=== PATIENT | male | born 1985 | race Hispanic/Latino ===

== ENCOUNTER 2023-11-30 20:24 | Inpatient (IN) | payer BC, OTHER ==
[2023-11-30] MEDS ORDERED: ONDANSETRON 4 MG/2 ML VIAL ONE (21:07)
[2023-11-30] MEDS ORDERED: NA CHLORIDE 0.9% 1,000 ML ONE (21:07)
[2023-11-30 21:13] LABS: Absolute Lymphocytes (CBC) 1.3 K/uL (0.7-4.9); Absolute Monocytes 1.6 K/uL (0.1-1.3); Basophils % 0.2 % (0-1.3); Eosinophils % 0.3 % (0-4.4); Hematocrit 53.5 % (39.6-49.0); Hemoglobin 17.8 g/dL (13.6-17.9); Lymphocytes % 8.4 % (15.3-44.8); MCH 27.7 pg (27.0-35.0); MCHC 33.2 g/dL (32.0-36.0); MCV 83.5 fL (80-100); MPV 9.6 fL (7.6-11.3); Monocytes % 10.6 % (3.3-12.3); Neutrophils % 80.5 % (41.7-73.7); Nucleated Red Blood Cells % 0.3 % (0-0); Platelets 279 thou/uL (152-406); RBC Red Blood Cell Count 6.41 M/uL (4.33-5.43); Red Cell Distribution Width 15.5 % (12.1-15.2)
[2023-11-30 21:24] LABS: ALT/SGPT 20 U/L (16-61); Albumin 3.2 g/dL (3.4-5.0); Albumin/Globulin Ratio 0.9 (1.1-1.8); Alkaline Phosphatase 29 U/L (45-117); Anion Gap 13.7 mEq/L (5.0-15.0); BUN Blood Urea Nitrogen 60 mg/dL (7-18); Bicarbonate 23 mEq/L (21-32); Bilirubin Total 1.1 mg/dL (0.2-1.0); Globulin 3.5 g/dL (2.3-3.5); Glomerular Filtration Rate 30 ml/min (=/>90); Glucose Level 198 mg/dL (74-106); Potassium 3.7 mEq/L (3.5-5.1); Protein, Total 6.7 g/dL (6.4-8.2); Sodium Level 131 mEq/L (136-145)
[2023-11-30 21:27] LABS: AST/SGOT < 10 U/L (15-37)
[2023-11-30 21:39] LABS: Band Neutrophils 26 % (0-1); Differential Total Cells Count 100; Lymphocytes 3 % (15-42); Monocytes 11 % (0-10); Reactive Lymphocytes 7 %; Segmented Neutrophils 53 % (40-80)
[2023-11-30 21:40] LABS: Blood Morphology Comment NOT SEEN (NOT SEEN); Platelet Estimate ADEQ
[2023-11-30 21:44] LABS: PT Prothrombin Time 11.7 SECONDS (9.4-12.5); PTT, Activated Partial Thromb 31.8 SECONDS (24.3-36.9); Protime INR 1.05
[2023-11-30] MEDS ORDERED: CEFTRIAXONE 1000 MG/VIAL ONE (22:00)
[2023-11-30 22:06] LABS: SARS-CoV-2 Antigen CONTROL BLUE LINE VIS/BG OK; SARS-CoV-2 Antigen Rapid Res Negative (Negative)
[2023-11-30 22:08] LABS: Specific Gravity 1.016 (1.005-1.030); Sqamous Epithelial <5 /HPF (None Seen); Urine Bacteria 20-50 /HPF (<20); Urine Bilirubin NEGATIVE (Negative); Urine Blood 3+ (OVER) (Negative); Urine Clarity Extremely Turbid (Clear); Urine Color Light-Orange (Yellow); Urine Culture Reflex Order REFLEXED; Urine Glucose 4+ (Over) (Negative); Urine Ketones NEGATIVE (Negative); Urine Microscopic Reflex YN ORDER UMIC; Urine Mucus Slight /HPF (None Seen); Urine Nitrite NEGATIVE (Negative); Urine Protein 2+ (Negative); Urine RBC >50 /HPF (None Seen); Urine Urobilinogen Normal (Normal); Urine WBC >50 /HPF (<5); Urine pH 5.5 (5.0-7.0)
--- NOTE | 2023-11-30 22:47 | EDPHYS ---
Physician Documentation [facility] Name: Vinicio Lowe Age: 38 yrs Sex: Male : 1985 Arrival Date: 11/30/2023 Time: 20:24 Bed 20 Private MD: ED Physician Deo You HPI: 11/29 22:47 This 38 yrs old Male presents to ER via Ambulatory with complaints of ms3 Vomiting/Diarrhea, Abdominal Pain. 22:47 38-year-old male with past medical history of chronic kidney disease, liver transplant ms3 ago in [place] presents to the emergency department for nausea, vomiting, diarrhea that began on Friday. Patient had 1 episode of vomiting on Friday. Patient has had persistent diarrhea since Friday. He states his discomfort is an 8/10 describes the discomfort as generalized body aches. He denies any alleviating or inciting factors.. Historical: - Allergies: 20:55 No Known Allergies; tm6 - PMHx: 20:55 chronic kidney disease; tm6 - PSHx: 20:55 liver transplant; tm6 - Immunization history:: Client reports receiving the 2nd dose of the Covid vaccine. - Infectious Disease History:: Denies. - Social history:: Smoking status: Reported history of juuling and/or vaping. Patient/guardian denies using alcohol. ROS: 22:47 Constitutional: Negative for fever, and chills. Cardiovascular: Negative for chest ms3 pain, and palpitations. Respiratory: Negative for shortness of breath, cough, wheezing, and pleuritic chest pain, 22:47 MS/Extremity: Negative for injury and deformity, Skin: Negative for injury, rash, and discoloration, 22:47 Abdomen/GI: Positive for nausea, vomiting, and diarrhea, Exam: 22:47 Constitutional: This is a well developed, well nourished patient who is awake, alert, ms3 and in no acute distress. Neck: Trachea midline, no cervical lymphadenopathy. Supple, full range of motion without nuchal rigidity, or vertebral point tenderness. No Meningismus. Chest/axilla: Normal chest wall appearance and motion. Nontender with no deformity. Respiratory: Lungs have equal breath sounds bilaterally, clear to auscultation and percussion. No rales, rhonchi or wheezes noted. No increased work of breathing, no retractions or nasal flaring. Abdomen/GI: Soft, non-tender, with normal bowel sounds. No distension or tympany. No guarding or rebound. No evidence of tenderness throughout. Skin: Warm, dry with normal turgor. Normal color with no rashes, no lesions, and no evidence of cellulitis. 22:47 Cardiovascular: Rate: tachycardic, Rhythm: regular, Pulses: no pulse deficits are appreciated, Heart sounds: normal, normal S1and S2, 23:24 ECG was reviewed by the Attending Physician. ms3 Vital Signs: 20:42 BP 114 / 81; Pulse 123; Resp 19; Temp 98.8(O); Pulse Ox 95% on R/A; MAP 87 mmHg; Weight tm6 97.52 kg; Height 5 ft. 9 in. ; Pain 4/10; 21:30 BP 124 / 85; Pulse 97; Resp 18 S; Pulse Ox 93% on R/A; br2 22:30 BP 122 / 68; Pulse 94; Resp 18 S; Pulse Ox 92% on R/A; br2 23:34 BP 120 / 70; Pulse 98; Resp 18 S; Temp 97.2; Pulse Ox 95% on R/A; br2 20:42 Body Mass Index 31.75 (97.52 kg, 175.26 cm) tm6 20:42 Pain Scale: Adult tm6 MDM: 20:52 Medical Screening Exam initiated ms3 22:47 Differential diagnosis: viral gastroenteritis, Rhabdo vs Acute Kidney Injury. Data ms3 reviewed: vital signs, nurses notes, and as a result, I will admit patient. Consideration of Admission/Observation Patient was admitted/placed on observation. Management of patient was discussed with the following: Hospitalist: Dr Francis. I considered the following discharge prescriptions or medication management in the emergency department Medications were administered in the Emergency Department. See MAR. Counseling: I had a detailed discussion with the patient and/or guardian regarding the historical points, exam findings, and any diagnostic results supporting the discharge/admit diagnosis, lab results, the need for further work-up and treatment in the hospital. ED course: Patient meets severe sepsis criteria at this time. A. UTI B. HR>90, WBC >12k. C. Cr >2. Sepsis order set utilized. Blood cultures obtained. Rocephin given. No need for repeat LA as initial was <2.0. 10/20 20:53 Order name: CBC with Diff; Complete Time: 21:50 ms3 11/29 20:53 Order name: CMP; Complete Time: 21:34 ms3 11/29 21:18 Order name: Manual Differential; Complete Time: 21:50 EDMS 11/29 21:22 Order name: Urinalysis w/ reflexes; Complete Time: 22:31 ms3 11/29 21:23 Order name: Blood Culture Adult (2) ms3 11/29 21:23 Order name: Lactate w/ 2H reflex if indic.; Complete Time: 22:31 ms3 11/29 21:23 Order name: Protime (+inr); Complete Time: 21:50 ms3 11/29 21:23 Order name: Ptt, Activated; Complete Time: 21:50 ms3 11/29 21:23 Order name: Flu; Complete Time: 22:31 ms3 11/29 21:23 Order name: SARS RAPID; Complete Time: 22:31 ms3 11/29 22:12 Order name: Urine Culture EDMS 11/29 23:00 Order name: Lactate w/ 2H reflex if indic. EDMS 11/29 23:00 Order name: Urinalysis w/ reflexes EDMS 11/29 23:00 Order name: CBC with Automated Diff EDMS 11/29 23:00 Order name: CBC with Automated Diff EDMS 11/29 23:00 Order name: Comprehensive Metabolic Panel EDMS 11/29 23:00 Order name: Comprehensive Metabolic Panel EDMS 11/29 21:23 Order name: EKG; Complete Time: 21:23 ms3 11/29 21:23 Order name: Accucheck; Complete Time: 22:37 ms3 11/29 21:23 Order name: Cardiac monitoring; Complete Time: 22:37 ms3 11/29 21:23 Order name: EKG - Nurse/Tech; Complete Time: 23:15 ms3 11/29 21:23 Order name: IV Saline Lock - Large Bore; Complete Time: 22:37 ms3 11/29 21:23 Order name: Labs collected and sent; Complete Time: 22:37 ms3 11/29 21:23 Order name: O2 Per Protocol; Complete Time: 22:37 ms3 11/29 21:23 Order name: O2 Sat Monitoring; Complete Time: 22:37 ms3 11/29 21:23 Order name: Vital Signs; Complete Time: 22:37 ms3 EC:24 Rate is 96 beats/min. Rhythm is regular. QRS [place] is Normal. [place] interval is normal. QRS ms3 interval is normal. Clinical impression: Normal ECG. Interpreted by me. Reviewed by me. Administered Medications: 21:20 Drug: Ondansetron IVP 4 mg IVP once; over 2 minutes Route: IVP; Site: right antecubital;br2 22:00 Follow up: Response: No adverse reaction br2 21:21 Drug: NS 0.9% IV 1000 ml IV at 1000 ml once; to be given as a bolus over 60 minutes br2 Route: IV; Rate: 1000 ml; Site: right antecubital; 22:30 Follow up: Response: No adverse reaction; IV Status: Completed infusion; IV Intake: br2 1000ml 22:05 Drug: Rocephin IV 1 grams IV at calculated rate once; Given slow IV push per pharmacy br2 instructions Route: IV; Rate: calculated rate; Site: right antecubital; 22:50 Follow up: Response: No adverse reaction; IV Status: Completed infusion; IV Intake: 40ycin2 Disposition Summary: 11/30/23 22:46 Hospitalization Ordered Notes: Hospitalization Status: Inpatient Admission ms3 Provider: Heriberto Francis ms3 Location: Telemetry/[facility] (Inpatient) ms3 Condition: Stable ms3 Problem: new ms3 Symptoms: are unchanged ms3 Bed/Room Type: Standard ms3 Room Assignment: 231(11/30/23 23:09) Diagnosis - Severe sepsis without septic shock ms3 - Acute kindey injury ms3 Forms: - Medication Reconciliation Form ms3 - SBAR form ms3 - Leadership Thank You Letter ms3 Critical care time excluding procedures: 22:47 Critical care time: Bedside Care: 35 minutes, Consultation: 5 minutes, Family ms3 Intervention: 5 minutes. Total time: 45 minutes Signatures: Dispatcher [employer] Toshia White, RN RN Deo Odell DO DO ms3 Dhara Canchola RN RN tm6 Sharon Warren RN RN br2 Tegan Palomo RN ha1 Corrections: (The following items were deleted from the chart) 21:23 21:23 Influenza Screen (A \T\ B)+BA.LAB.BRZ ordered. EDMS EDMS 21:23 SARS-COV-2 Antigen Rapid+I.LAB.BRZ ordered. EDMS EDMS : 22:46 ms3 cg
--- NOTE | 2023-11-30 22:47 | ER ---
Nurse's Notes [facility] Name: Vinicio Lowe Age: 38 yrs Sex: Male : 1985 Arrival Date: 11/30/2023 Time: 20:24 Bed 20 Private MD: Diagnosis: Severe sepsis without septic shock;Acute kindey injury Presentation: 11/29 20:42 Chief complaint: Patient states: since Friday evening I have had n/v/d. My lower tm6 abdomen and esophagus hurt. Coronavirus screen: Vaccine status: Patient reports receiving the 2nd dose of the covid vaccine. Client denies travel out of the [place] in the last 14 days. Ebola Screen: Patient negative for fever greater than or equal to 101.5 degrees Fahrenheit, and additional compatible Ebola Virus Disease symptoms Patient denies exposure to infectious person. Patient denies travel to an Ebola-affected area in the 21 days before illness onset. No symptoms or risks identified at this time. Initial Sepsis Screen: Does the patient meet any 2 criteria? HR > 90 bpm. Does the patient have a suspected source of infection? No. Patient's initial sepsis screen is negative. Risk Assessment: Do you want to hurt yourself or someone else? Patient reports no desire to harm self or others. Onset of symptoms was November 28, 2023. 20:42 Method Of Arrival: Ambulatory tm6 20:42 Acuity: TERRY 3 tm6 Triage Assessment: 20:42 General: Appears in no apparent distress. uncomfortable, Behavior is calm, cooperative. tm6 Pain: Complains of pain in right lower quadrant, left lower quadrant and throat Pain currently is 4 out of 10 on a pain scale. EENT: Reports pain in throat. Neuro: Level of Consciousness is awake, alert, obeys commands, Oriented to person, place, time, situation. Cardiovascular: Patient's skin is warm and dry. Respiratory: Airway is patent Respiratory effort is even, unlabored, Respiratory pattern is regular, symmetrical. GI: Reports lower abdominal pain, diarrhea, nausea, vomiting, since Friday. : Urine is dark. Derm: No signs and/or symptoms reported regarding the dermatologic system. Musculoskeletal: No signs and/or symptoms reported regarding the musculoskeletal system. Historical: - Allergies: 20:55 No Known Allergies; tm6 - PMHx: 20:55 chronic kidney disease; tm6 - PSHx: 20:55 liver transplant; tm6 - Immunization history:: Client reports receiving the 2nd dose of the Covid vaccine. - Infectious Disease History:: Denies. - Social history:: Smoking status: Reported history of juuling and/or vaping. Patient/guardian denies using alcohol. Screenin:45 [facility] ED Fall Risk Assessment (Adult) History of falling in the last 3 months, br2 including since admission No falls in past 3 months (0 pts) Confusion or Disorientation No (0 pts) Intoxicated or Sedated No (0 pts) Impaired Gait No (0 pts) Mobility Assist Device Used No (0 pt) Altered Elimination No (0 pt) Score/Fall Risk Level 0 - 2 = Low Risk Oriented to surroundings. Abuse screen: Denies threats or abuse. Denies injuries from another. Nutritional screening: No deficits noted. Tuberculosis screening: No symptoms or risk factors identified. Assessment: 20:45 Reassessment: Patient and/or family updated on plan of care and expected duration. Pain br2 level reassessed. Patient is alert, oriented x 3, equal unlabored respirations, skin warm/dry/pink. General: Appears in no apparent distress. comfortable, Behavior is calm, cooperative. Pain: Complains of pain in neck BODYACHES ALL OVER. Neuro: Hernandez Agitation-Sedation Scale (RASS): 0 - Alert and Calm Level of Consciousness is awake, alert, obeys commands, Oriented to person, place, time. Cardiovascular: Capillary refill < 3 seconds. Respiratory: Airway is patent Respiratory effort is even, unlabored, Respiratory pattern is regular. GI: Abdomen is flat, Bowel sounds present X 4 quads. : Urine is BROWN. EENT: No signs and/or symptoms were reported regarding the EENT system. Derm: No signs and/or symptoms reported regarding the dermatologic system. Musculoskeletal: Reports BODYACHES ALL OVER. Vital Signs: 20:42 BP 114 / 81; Pulse 123; Resp 19; Temp 98.8(O); Pulse Ox 95% on R/A; MAP 87 mmHg; Weight tm6 97.52 kg; Height 5 ft. 9 in. ; Pain 4/10; 21:30 BP 124 / 85; Pulse 97; Resp 18 S; Pulse Ox 93% on R/A; br2 22:30 BP 122 / 68; Pulse 94; Resp 18 S; Pulse Ox 92% on R/A; br2 23:34 BP 120 / 70; Pulse 98; Resp 18 S; Temp 97.2; Pulse Ox 95% on R/A; br2 20:42 Body Mass Index 31.75 (97.52 kg, 175.26 cm) tm6 20:42 Pain Scale: Adult tm6 ED Course: 20:26 Patient arrived in ED. im 20:39 Deo You DO is Attending Physician. ms3 20:42 Arm band placed on right wrist. tm6 20:43 Triage completed. tm6 20:45 Sharon Warren, RN is Primary Nurse. br2 20:45 Patient has correct armband on for positive identification. Placed in gown. Bed in low br2 position. Call light in reach. Side rails up X 1. Provided Education on: PLAN OF CARE. 22:30 Inserted saline lock: 20 gauge in right antecubital area, using aseptic technique. br2 Blood collected. Flushed with 10 mL NS. 22:45 Heriberto Francis MD is Hospitalizing Provider. ms3 22:55 Blood Culture Adult (2) Sent. br2 23:15 EKG done, by ED staff. vk 23:37 No provider procedures requiring assistance completed. br2 11/30 00:32 Patient admitted, IV remains in place. ha1 Administered Medications: 11/29 21:20 Drug: Ondansetron IVP 4 mg IVP once; over 2 minutes Route: IVP; Site: right antecubital;br2 22:00 Follow up: Response: No adverse reaction br2 21:21 Drug: NS 0.9% IV 1000 ml IV at 1000 ml once; to be given as a bolus over 60 minutes br2 Route: IV; Rate: 1000 ml; Site: right antecubital; 22:30 Follow up: Response: No adverse reaction; IV Status: Completed infusion; IV Intake: br2 1000ml 22:05 Drug: Rocephin IV 1 grams IV at calculated rate once; Given slow IV push per pharmacy br2 instructions Route: IV; Rate: calculated rate; Site: right antecubital; 22:50 Follow up: Response: No adverse reaction; IV Status: Completed infusion; IV Intake: [id number] Medication: 23:38 VIS not applicable for this client. br2 Intake: 22:30 IV: 1000ml; Total: 1000ml. br2 22:50 IV: 50ml; Total: 1050ml. ha1 Outcome: 22:46 Decision to Hospitalize by Provider. ms3 11/30 00:32 Admitted to Med/surg accompanied by tech, via wheelchair, room 231, with chart, ha1 Condition: stable Instructed on the need for admit, Demonstrated understanding of instructions, 00:33 Patient left the ED. ha1 Signatures: Deo You, DO ms3 Tegan Palomo, RN RN ha1 Eileen Manning Tawney RN RN tm6 Santa Pop Belinda, RN RN br2
--- NOTE | 2023-11-30 22:55 | P.HP ---
Certification for Inpatient Patient admitted to: Inpatient With expected LOS: >2 Midnights Practitioner: I am a practitioner with admitting privileges, knowledge of patient current condition, hospital course, and medical plan of care. Services: Services provided to patient in accordance with Admission requirements found in Title 42 Section 412.3 of the Code of Federal Regulations Patient History Date of Service: 12/01/23 Reason for admission: Nausea vomiting diarrhea, generalized weakness History of Present Illness: 38 yrs old Male with past medical history of CKD stage II, liver transplant on mycophenolate, and tacrolimus who was brought to ER with nausea vomiting diarrhea and abdominal pain which has been going on for the last 2 days and has been progressively getting worse and was brought to ER. Symptoms began on Friday. Patient had 1 episode of vomiting on Friday. Patient has had persistent diarrhea since Friday. Patient was assessed in the ER send admitted for further management . Allergies No Known Allergies Allergy (Unverified 12/01/23 01:03) Home medications list reviewed: Yes Home Medications: Empagliflozin [Jardiance] 10 mg PO DAILY 12/01/23 Losartan Potassium 100 mg PO 12/01/23 Tacrolimus 1.5 mg PO 12/01/23 methylPREDNISolone [Medrol] 20 mg PO 12/01/23 - Past Medical/Surgical History Past Medical History: Reviewed- Non-Contributory -: History of liver transplant Past Surgical History: Reviewed- Non-Contributory - Family History Family History: Reviewed- Non-Contributory - Social History Smoking Status: Never smoker Review of Systems 10-point ROS is otherwise unremarkable Physical Examination - Vital Signs Temperature: 98.2 F Blood Pressure: 114/80 Pulse: 112 Respirations: 18 Pulse Ox (%): 94 - Physical Exam General: Alert, Oriented x3, Mild distress HEENT: Atraumatic, Normocephalic Neck: Supple, No Thyromegaly Respiratory: Clear to auscultation bilaterally, Normal air movement Cardiovascular: Regular rate/rhythm, Normal S1 S2 Capillary refill: <2 Seconds Gastrointestinal: Soft and benign, W/out hepatosplenomegaly Musculoskeletal: No clubbing, No erythema, Swelling Integumentary: No rashes, No tenderness/swelling Neurological: Normal speech, Normal strength at 5/5 x4 extr Lymphatics: No axilla or inguinal lymphadenopathy - Studies Laboratory Data (last 24 hrs) 11/30/23 11/30/23 11/30/23 20:58 20:58 20:58 WBC 14.90 H Hgb 17.8 Hct 53.5 H Plt Count 279 PT 11.7 INR 1.05 APTT 31.8 Sodium 131 L Potassium 3.7 BUN 60 H Creatinine 2.76 H Glucose 198 H Total Bilirubin 1.1 H AST < 10 L ALT 20 Alkaline Phosphatase 29 L Microbiology Data (last 24 hrs): 11/30/23 21:30 Nasopharnyx Influenza Type A Antigen Screen - Final 11/30/23 21:30 Nasopharnyx Influenza Type B Antigen Screen - Final Assessment and Plan - Plan Acute gastroenteritis Monitor closely on telemetry Started on IV antibiotics Will get an ultrasound of the abdomen IV hydration Acute kidney injury CKD stage II Monitor renal parameters Electrolytes monitor and replace accordingly Hypertension Antihypertensives titrated Continue home medications and titrate as needed Diabetes Insulin sliding scale Accu-Chek before every meal and at bedtime UTI IV antibiotic Will obtain cultures Change antibiotic as per sensitivity Status post liver transplant Continue antirejection medications GI/DVT prophylaxis Advanced directive full code Discharge Plan: Home - Advance Directives Does patient have a Living Will: No Does patient have a Durable POA for Healthcare: No - Code Status/Comfort Care Code Status: Full Code Time Spent Managing Pts Care (In Minutes): 48
[2023-12-01 00:55] VITALS: BMI 32.1
[2023-12-01] MEDS: NA CHLORIDE 0.9% 1,000 ML IV SCH ×2 (02:00→15:07)
[2023-12-01] MEDS: METRONIDAZOLE 500mg IVPB 500 MG/100 ML BAG IV SCH (02:00)
[2023-12-01 04:23] VITALS: O2SAT 95
[2023-12-01] MEDS ORDERED: SODIUM CHLORIDE 0.9% 10ML INJ IV PRN (05:51)
[2023-12-01] MEDS: ONDANSETRON 4 MG/2 ML VIAL ONE (06:36)
[2023-12-01] MEDS: ONDANSETRON 4 MG/2 ML VIAL IV PRN (06:43)
[2023-12-01] MEDS: PANTOPRAZOLE 40 MG INJ IVP SCH (06:43)
[2023-12-01 07:19] LABS: Absolute Basophils 0.1 K/uL (0-0.5); Absolute Eosinophils 0.1 K/uL (0-0.5); Absolute Lymphocytes (CBC) 1.9 K/uL (0.7-4.9); Absolute Monocytes 1.7 K/uL (0.1-1.3); Absolute Neutrophil 10.4 K/uL (1.8-8.0); Basophils % 0.6 % (0-1.3); Hematocrit 50.6 % (39.6-49.0); Lymphocytes % 13.5 % (15.3-44.8); MCH 28.3 pg (27.0-35.0); MCHC 33.6 g/dL (32.0-36.0); MCV 84.4 fL (80-100); MPV 9.9 fL (7.6-11.3); Monocytes % 12.2 % (3.3-12.3); Neutrophils % 72.7 % (41.7-73.7); Nucleated RBC Absolute Count 0.1 (0-0); Nucleated Red Blood Cells % 0.5 % (0-0); Platelets 285 thou/uL (152-406); RBC Red Blood Cell Count 5.99 M/uL (4.33-5.43); Red Cell Distribution Width 15.6 % (12.1-15.2)
[2023-12-01 07:27] LABS: ALT/SGPT 16 U/L (16-61); Albumin/Globulin Ratio 0.9 (1.1-1.8); Alkaline Phosphatase 27 U/L (45-117); Anion Gap 10.6 mEq/L (5.0-15.0); BUN Blood Urea Nitrogen 55 mg/dL (7-18); Bicarbonate 22 mEq/L (21-32); Bilirubin Total 0.9 mg/dL (0.2-1.0); Globulin 3.3 g/dL (2.3-3.5); Glomerular Filtration Rate 38 ml/min (=/>90); Glucose Level 177 mg/dL (74-106); Potassium 3.6 mEq/L (3.5-5.1); Protein, Total 6.3 g/dL (6.4-8.2); Sodium Level 132 mEq/L (136-145)
[2023-12-01 07:31] LABS: AST/SGOT < 10 U/L (15-37)
--- NOTE | 2023-12-01 08:14 | RAD REPORT ---
EXAMINATION: Abdomen Exam Complete CLINICAL INDICATION: Male, 38 years, Gastroenteritis TECHNIQUE: Grayscale ultrasonography of the abdomen was performed. [id number]. COMPARISON: No prior exam. FINDINGS: LIVER: Normal size and echogenicity. No masses seen. GALLBLADDER: No gallstones, gall bladder wall thickening or pericholecystic fluid. No reported sono graphic Ojeda's sign. BILE DUCTS: Intrahepatic and extrahepatic bile ducts appear normal. Measured near the viviana hepatis , the common bile duct is 0.4 cm RIGHT KIDNEY: Right renal length measurement: 10.6 cm. Normal in echogenicity and size. No calculus, solid mass or hydronephrosis. LEFT KIDNEY: Left renal length measurement: 11.5 cm. Normal in echogenicity and size. No calculus, s olid mass or hydronephrosis. SPLEEN: Normal in echogenicity, and mildly enlarged, measuring 13.9 cm in length. PANCREAS: Evaluation is markedly limited by overshadowing bowel gas. AORTA AND INFERIOR VENA CAVA: Visualized segments of the aorta and inferior vena cava are normal. ASCITES: None. ADDITIONAL FINDINGS: None. IMPRESSION: Splenomegaly of uncertain etiology. Other findings as above.
[2023-12-01] MEDS: CEFTRIAXONE 1,000 MG in NA CHLORIDE 0.9% 50 ML IVPB SCH (09:18)
[2023-12-01] MEDS: ENOXAPARIN 30 MG/0.3 ML SQ SCH (09:25)
[2023-12-01 12:25] LABS: Band Neutrophils 8 % (0-1); Differential Total Cells Count 100; Lymphocytes 13 % (15-42); Segmented Neutrophils 64 % (40-80)
[2023-12-01 12:26] LABS: Blood Morphology Comment NOT SEEN (NOT SEEN); Monocytes 11 % (0-10); Platelet Estimate ADEQ; Reactive Lymphocytes 4 %
--- NOTE | 2023-12-01 12:30 | P.PN ---
Subjective Date of Service: 12/01/23 Chief Complaint: Nausea vomiting diarrhea, generalized weakness Subjective: Improving (still only able to tolerate ice chips since this am) Physical Examination - Vital Signs Temperature: 97.5 F Blood Pressure: 128/77 Pulse: 83 Respirations: 16 Pulse Ox (%): 98 - Studies Laboratory Data (last 24 hrs) 11/30/23 11/30/23 11/30/23 20:58 20:58 20:58 WBC 14.90 H Hgb 17.8 Hct 53.5 H Plt Count 279 PT 11.7 INR 1.05 APTT 31.8 Sodium 131 L Potassium 3.7 BUN 60 H Creatinine 2.76 H Glucose 198 H Total Bilirubin 1.1 H AST < 10 L ALT 20 Alkaline Phosphatase 29 L Microbiology Data (last 24 hrs): 11/30/23 21:30 Nasopharnyx Influenza Type A Antigen Screen - Final 11/30/23 21:30 Nasopharnyx Influenza Type B Antigen Screen - Final Assessment And Plan - Plan Assessment and Plan - Plan Acute gastroenteritis Monitor closely on telemetry Started on IV antibiotics Will get an ultrasound of the abdomen - mild splenomegaly (12/01/23), no cholecystitis IV hydration 12/01/23 - pt states now is home with similar s/s Acute kidney injury with significant Hypokalemia CKD stage II Monitor renal parameters Electrolytes monitor (Hypokalemia) and replace accordingly Hypertension Antihypertensives titrated Continue home medications and titrate as needed Diabetes Insulin sliding scale Accu-Chek before every meal and at bedtime UTI IV antibiotic Will obtain cultures Change antibiotic as per sensitivity Status post liver transplant Continue antirejection medications GI/DVT prophylaxis Advanced directive full code Discharge Plan: Home - Advance Directives Does patient have a Living Will: No Does patient have a Durable POA for Healthcare: No - Code Status/Comfort Care Code Status: Full Code Time Spent Managing Pts Care (In Minutes): 28 Discharge Plan: Home Plan to discharge in: 24 Hours
[2023-12-01] MEDS: ACETAMINOPHEN 325 MG TABLET PO PRN (16:29)
--- NOTE | 2023-12-02 01:30 | CON ---
Date of Consultation: 12/01/2023 Chief Complaint: Acute kidney injury. History Of Present Illness: The patient is a 38-year-old man with history of liver transplant, chron ic kidney disease stage 2. He is taking mycophenolate mofetil, tacrolimus, and Medrol status post [place] transplant and he came to the hospital because of nausea, vomiting, diarrhea, volume depletion. He was found to have acute kidney injury. He has nonoliguric urine output. He takes losartan 100 mg a day, tacrolimus 1.5 mg twice a day, mycophenolate mofetil 1500 mg twice a day, and Medrol 20 mg da parviz. He became nauseated on Friday. He had persistent diarrhea since Friday. He denies bloody di arrhea. Denies hematuria, dysuria. Past Medical History: IgA nephropathy, chronic kidney disease stage 2, liver failure. Past Surgical History: Status post liver transplant. Family History: Noncontributory. Review of Systems: Constitutional: Denies fever, chills. Eyes: Denies vision changes. Ears, Nose, Mouth, and Throat: Denies sore throat, earache. Respiratory: Denies PND, orthopnea. Cardiovascular: Denies chest pain, palpitation, syncope. GI: Had nausea, vomiting. Denies melena, hematemesis. : Denies incomplete voiding. Denies hematuria, dysuria. Physical Examination: General: Alert, oriented x3. HEENT: Atraumatic, normocephalic. Neck: Supple. No thyromegaly. Respiratory: Clear to auscultation bilaterally. Normal air movement. Cardiovascular: S1, S2. Regular rate. Gastrointestinal: Soft and benign without rebound or guarding. Neurologic: Moving extremities. Cranial nerves intact. Psychiatric: Normal affect. Laboratory Data: PT is 11.7, INR 1.05, APTT 31.8. Sodium 131, potassium 3.7, BUN 60, creatinine 2.7 6, glucose 198, bilirubin total 1.1, AST 20, ALT 29. WBC 14.9, hemoglobin 17.8, hematocrit 53.5, bia telet count 279. Culture results are pending. Urinalysis showed hematuria, leukocyturia. Impression And Plan: 1.The patient has history of chronic kidney disease stage 2, IgA nephropathy, and he has been seen b y ladle handler in [place], Dr. Mancini, who has previously treated him. For IgA nephropathy, he is on Me drol 20 mg a day. For anti-rejection medication, he takes tacrolimus 1.5 twice a day and CellCept 15 00 twice a day. Plan is to re-evaluate tacrolimus level. Acute kidney injury on chronic kidney dise ase is due to volume depletion and superimposed with angiotensin receptor becca effect and losartan was some due to acute kidney injury. 2.Hypertension. Continue current blood pressure medication. 3.Diabetes mellitus. Continue insulin. Avoid oral hypoglycemic agent. 4.Possible urinary tract infection. Culture pending. The patient may need broad-spectrum antibioti cs. 5.Status post liver transplant. Continue anti-rejection medication. Plan is to check tacrolimus justice Ahuja/ELIJAH Voice ID: [id number] Report ID: [id number]
[2023-12-02 05:40] LABS: Absolute Basophils 0.1 K/uL (0-0.5); Absolute Eosinophils 0.2 K/uL (0-0.5); Absolute Lymphocytes (CBC) 1.6 K/uL (0.7-4.9); Absolute Monocytes 0.9 K/uL (0.1-1.3); Absolute Neutrophil 4.8 K/uL (1.8-8.0); Basophils % 0.8 % (0-1.3); Eosinophils % 2.5 % (0-4.4); Hematocrit 44.8 % (39.6-49.0); Lymphocytes % 21.7 % (15.3-44.8); MCH 28.3 pg (27.0-35.0); MCHC 33.4 g/dL (32.0-36.0); MCV 84.8 fL (80-100); MPV 9.1 fL (7.6-11.3); Monocytes % 11.5 % (3.3-12.3); Neutrophils % 63.5 % (41.7-73.7); Nucleated Red Blood Cells % 0.2 % (0-0); Platelets 203 thou/uL (152-406); RBC Red Blood Cell Count 5.28 M/uL (4.33-5.43); Red Cell Distribution Width 15.6 % (12.1-15.2)
[2023-12-02 05:54] LABS: Albumin 2.6 g/dL (3.4-5.0); Alkaline Phosphatase 21 U/L (45-117); Anion Gap 5.7 mEq/L (5.0-15.0); BUN Blood Urea Nitrogen 36 mg/dL (7-18); Bicarbonate 28 mEq/L (21-32); Bilirubin Total 0.5 mg/dL (0.2-1.0); Globulin 2.6 g/dL (2.3-3.5); Glomerular Filtration Rate 45 ml/min (=/>90); Glucose Level 129 mg/dL (74-106); Potassium 3.7 mEq/L (3.5-5.1); Protein, Total 5.2 g/dL (6.4-8.2); Sodium Level 141 mEq/L (136-145)
[2023-12-02 05:55] LABS: ALT/SGPT < 14 U/L (16-61); AST/SGOT < 10 U/L (15-37)
[2023-12-02 08:38] VITALS: BP 137/81; TEMP 98
[2023-12-02] MEDS: MYCOPHENOLATE 500 MG PO SCH (08:49)
[2023-12-02] MEDS: methylPREDNISolone 4 MG TAB PO SCH (08:50)
[2023-12-02] MEDS: TACROLIMUS 1.5 MG PO SCH (08:50)
[2023-12-02] MEDS: METHYLPREDNISOLONE 125 MG INJ IV ONE (11:06)
[2023-12-02 11:36] LABS: Anion Gap 5.3 mEq/L (5.0-15.0); Potassium 4.3 mEq/L (3.5-5.1)
--- NOTE | 2023-12-02 11:40 | RAD REPORT ---
EXAMINATION: CT ABDOMEN AND PELVIS WITHOUT CONTRAST CLINICAL INDICATION: diarrhea; splenomegaly; h/o of liver transplant TECHNIQUE: CT abdomen and pelvis was performed, without IV contrast, as per department protocol. Axia l, sagittal and coronal reconstructions were obtained. One or more of the following dose reduction techniques were used: Automated exposure control, adjustment of the mA and kV according to the patien t size, and iterative reconstruction. Unless otherwise specified, incidental findings do not require dedicated imaging follow-up. COMPARISON: No prior exam. FINDINGS: The lack of intravenous contrast limits the sensitivity of this exam for evaluation of solid visceral organs, vascular structures, and retroperitoneum. LOWER CHEST: The visualized lung bases are clear. LIVER:Liver size is mildly prominent. No focal liver lesion suspected. Cholecystectomy clips. SPLEEN: Upper limit of normal in size. No focal lesion. PANCREAS: No mass, ductal dilation, or karin-pancreatic fluid. ADRENALS: Normal; no mass. KIDNEYS AND URETERS: Normal size and contour. No hydronephrosis. URINARY BLADDER: Normal contour. GASTROINTESTINAL TRACT: No evidence of bowel obstruction, significant free fluid, free air or abscess . Sigmoid diverticulosis coli without diverticulitis. APPENDIX: Normal appendix. LYMPH NODES: No lymphadenopathy. MUSCULOSKELETAL: Mild lumbosacral degenerative changes. ADDITIONAL FINDINGS: Small fat-containing clinical hernia. Numerous small ventral hernia present as w ell along the anterior abdominal wall fascia. IMPRESSION: No acute or concerning abnormalities in the abdomen or pelvis, with evaluation limited by lack of IV contrast. Splenic size is considered upper limit of normal. Numerous small fat-containing ventral hernia along the anterior abdominal wall. Small fat-containing umbilical hernia.
--- NOTE | 2023-12-02 13:04 | P.PN ---
Subjective Date of Service: 12/02/23 Chief Complaint: Nausea vomiting diarrhea, generalized weakness Subjective: Improving (continued with three episodes of diarrhea this am. No N/V) Review of Systems 10-point ROS is otherwise unremarkable General: As per HPI Eyes: Unremarkable ENT: Unremarkable Respiratory: Unremarkable Cardiovascular: Unremarkable Gastrointestinal: Diarrhea Genitourinary: Unremarkable Musculoskeletal: Unremarkable Integumentary: Unremarkable Neurological: Unremarkable Lymphatics: Unremarkable Physical Examination - Vital Signs Temperature: 98.0 F Blood Pressure: 137/81 Pulse: 79 Respirations: 18 Pulse Ox (%): 97 - Physical Exam General: Alert, In no apparent distress, Oriented x3, Cooperative HEENT: Atraumatic, Normocephalic Neck: Supple Respiratory: Normal air movement Cardiovascular: Normal pulses, Regular rate/rhythm, Other (no longer tachycardic) Gastrointestinal: Soft and benign, Other (scarring, US yesterday with splenomegaly) Musculoskeletal: No clubbing Integumentary: No rashes Neurological: Normal speech, Normal tone, Normal affect Lymphatics: No axilla or inguinal lymphadenopathy External genitalia: Deferred Rectal: Deferred Assessment And Plan - Plan Assessment and Plan - Plan Acute gastroenteritis Monitor closely on telemetry Started on IV antibiotics Will get an ultrasound of the abdomen - mild splenomegaly (12/01/23), no cholecystitis IV hydration 12/01/23 - pt states now is home with similar s/s 12/02/23 no hx of splenomegaly and pt had liver transplant and cholecystectomy. CT abd/pelvis without contrast ordered. Acute kidney injury with significant Hypokalemia CKD stage II Monitor renal parameters Electrolytes monitor (Hypokalemia) and replace accordingly 12/02/23 creatinine improved from almost three to just under 2. Repeat at [address] Velarde Hypertension Antihypertensives titrated Continue home medications and titrate as needed Diabetes Insulin sliding scale Accu-Chek before every meal and at bedtime UTI IV antibiotic - rocephin and flagyl Will obtain cultures Change antibiotic as per sensitivity Status post liver transplant Continue antirejection medications - tacrolimus GI/DVT prophylaxis Advanced directive full code Discharge Plan: Home 24 hours - Advance Directives Does patient have a Living Will: No Does patient have a Durable POA for Healthcare: No - Code Status/Comfort Care Code Status: Full Code Time Spent Managing Pts Care (In Minutes): 28 Critical Care: No Time Spent Managing PTS Care (In Minutes): 28
--- NOTE | 2023-12-02 16:07 | CON ---
History Of Present Illness: This is a 38-year-old male, I was consulted for management of infection. His blood and urine cultures shows no growth. Initially, patient came in with symptoms of nausea, vomiting, diarrhea, and abdominal pain, thinking he had the viral gastroenteritis. His lab data show s elevated white blood cell count and renal insufficiency plus has high white blood cells in his urin e. He was put on Rocephin and Flagyl. He feels much better today. Past Medical History: As per HPI. Social History: Nonsmoker. Nondrinker. Family History: Noncontributory. Medications: Flagyl and Rocephin. See MARs for other medications. Allergies: NO KNOWN DRUG ALLERGIES. Review of Systems: A 10-point review was performed. Physical Examination: General: This is a 38-year-old male, lying in bed, not in any acute cardiopulmonary distress. Vital Signs: Temperature 98, pulse 79, respirations 18, blood pressure 137/81. HEENT: Unremarkable. Neck: Supple. Lungs: Clear to auscultation. Heart: S1, S2. Regular. Abdomen: Soft. Bowel sounds present. Extremity: No edema. Laboratory Data: Shows WBC down to 7.5, hemoglobin 15, platelets are 203. Chemistry shows BUN of 30 , creatinine 1.7. Micro data: Urine cultures no growth, blood cultures no growth for 24 hours. Assessment And Plan: Urinary tract infection, urosepsis in a patient with history of liver transplan t renal insufficiency, concern regarding antibiotic management. While patient in hospital , we will recommend to stop Rocephin and Flagyl and switch to cefepime or Cipro. Patient can be disc harged on Cipro to complete his full course of 5 days. We will follow the patient closely. Thank you, Dr. Castillo, for consult. MEHREEN/ELIJAH Voice ID: [id number] Report ID: [id number]
--- NOTE | 2023-12-02 22:07 | PN ---
Date of Progress Note: 12/02/2023 Chief Complaint: Acute kidney injury. History Of Present Illness: The patient is a 38-year-old man with past medical history of liver gambino splant; chronic kidney disease, stage 2; IgA nephropathy; history of microscopic hematuria. The yue ent was seen previously by a day habilitation supervisor in [place]. He remains on anti-rejection medications inclu ding mycophenolate mofetil, tacrolimus, and Medrol. The patient was brought to the hospital because of nausea, vomiting, diarrhea, decreased p.o. intake. He was found to have volume depletion and was started on IV fluids for acute kidney injury. The patient had severe diarrhea, although diarrhea was nonbloody. He had some chills and fever. Urine culture and blood cultures were obtained and result s are pending. Review of Systems: Patient denies fever, chills. Today, denies chest pain, palpitation. Physical Examination: Lungs: Clear to auscultation bilaterally. Heart: S1, S2. Abdomen: Soft, benign. Extremities: No edema. Impression And Plan: Acute kidney injury due to volume depletion, nonoliguric acute tubular necrosis . Continue IV fluids. The patient tolerates IV hydration. Continue by mouth hydration as well. Mo nitor electrolytes closely. Continue anti-rejection medication. Tacrolimus level is pending. 1.Hypertension. Blood pressure controlled. Avoid DANIELLE inhibitor. The patient is recovering gradual ly from acute kidney injury. Monitor electrolytes. 2.Possible urinary tract infection, pending urine culture. 3.Status post liver transplant. Continue current medication. Re-evaluate tacrolimus level. DELROY/ELIJAH Voice ID: [id number] Report ID: [id number]
[2023-12-03] MEDS ORDERED: ENOXAPARIN 40 MG/0.4 ML SQ SCH (09:00)
== END 2023-12-02 14:40 | disposition home or self-care (01) | DRG 871 ==
LOC: ER 20:24 → ERHOLD 22:55 → 2ND 12-01 00:02
PROVIDERS: ADMIT Family Medicine; ATTEND Hospitalist
DX: A41.9 Sepsis, unspecified organism (principal); N17.0 Acute kidney failure with tubular necrosis; Z94.4 Liver transplant status; N39.0 Urinary tract infection, site not specified; R65.20 Severe sepsis without septic shock; K52.9 Noninfective gastroenteritis and colitis, unspecified; I12.9 Hypertensive chronic kidney disease with stage 1 through stage 4 chronic kidney disease, or unspecified chronic kidney disease; N18.2 Chronic kidney disease, stage 2 (mild); E11.22 Type 2 diabetes mellitus with diabetic chronic kidney disease; E87.6 Hypokalemia; E86.0 Dehydration; Z11.52 Encounter for screening for COVID-19; Z79.899 Other long term (current) drug therapy; Z87.891 Personal history of nicotine dependence
CPT/HCPCS: 36415; 74176; 76700; 80048; 80053; 80197; 81001; 83605; 85025; 85610; 85730; 87040; 87086; 87088; 87804; 87811; 96361; 96365; 96375; 99285; J0696; J1650; J2405; J2470; J2919; J7030; J7509

== ENCOUNTER 2024-11-28 17:10 | Emergency (ER) | payer BC, OTHER ==
[2024-11-28] MEDS ORDERED: LIDOCAINE 1% 20 ML MDV ONE (17:38)
[2024-11-28] MEDS ORDERED: TDAP (DIPHTH,PERTUSS(ACELL),TET VAC) 0.5 ML VIAL IMVAC ONE (18:01)
--- NOTE | 2024-11-28 18:15 | ER ---
Nurse's Notes [facility] Name: Vinicio Lowe Age: 39 yrs Sex: Male : 1985 Arrival Date: 11/28/2024 Time: 17:10 Bed 9 Private MD: Diagnosis: Laceration without foreign body of left index finger with damage to nail, initial encounter Presentation: 11/28 17:21 Chief complaint: Patient states: patient accidentally cut himself on the left index iw Finger. 17:21 Coronavirus screen: Vaccine status: Client denies travel out of the [place] in the last 14 iw days. Ebola Screen: Patient negative for fever greater than or equal to 101.5 degrees Fahrenheit, and additional compatible Ebola Virus Disease symptoms Patient denies exposure to infectious person. Patient denies travel to an Ebola-affected area in the 21 days before illness onset. Complicating Factors: There are no complicating factors for this patient. Initial Sepsis Screen: Does the patient meet any 2 criteria? No. Patient's initial sepsis screen is negative. Does the patient have a suspected source of infection? No. Patient's initial sepsis screen is negative. Risk Assessment: Do you want to hurt yourself or someone else? Patient reports no desire to harm self or others. Onset of symptoms was November 28, 2024. Care prior to arrival: Bleeding of injury controlled. Injury dressed. Mechanism of Injury: Laceration sustained at home, from knife. 17:21 Method Of Arrival: Ambulatory iw 17:21 Acuity: TERRY 4 iw Triage Assessment: 17:21 General: Appears in no apparent distress. comfortable, Behavior is calm, cooperative, iw appropriate for age. Pain: Complains of pain in palmar aspect of distal phalanx of left index finger Quality of pain is described as aching. Injury Description: Laceration. Historical: - Allergies: 17:55 No Known Allergies; iw - PMHx: 17:55 chronic kidney disease; iw - PSHx: 17:55 liver transplant; iw - Immunization history:: Adult Immunizations not up to date. - Infectious Disease History:: Denies. - Social history:: Smoking status: Patient denies any tobacco usage or history of. Screenin:55 [facility] ED Fall Risk Assessment (Adult) History of falling in the last 3 months, iw including since admission No falls in past 3 months (0 pts) Confusion or Disorientation No (0 pts) Intoxicated or Sedated No (0 pts) Impaired Gait No (0 pts) Mobility Assist Device Used No (0 pt) Altered Elimination No (0 pt) Score/Fall Risk Level 0 - 2 = Low Risk Oriented to surroundings, Maintained a safe environment. Abuse screen: Denies threats or abuse. Nutritional screening: No deficits noted. Tuberculosis screening: No symptoms or risk factors identified. Assessment: 17:54 General: Appears in no apparent distress. comfortable. Pain: Complains of pain in iw palmar aspect of distal phalanx of right index finger. Neuro: Level of Consciousness is awake, alert, obeys commands, Oriented to person, place, time, situation. Cardiovascular: Patient's skin is warm and dry. Respiratory: Airway is patent Trachea midline Respiratory effort is even, unlabored. GI: No signs and/or symptoms were reported involving the gastrointestinal system. : No signs and/or symptoms were reported regarding the genitourinary system. EENT: No signs and/or symptoms were reported regarding the EENT system. Derm: No signs and/or symptoms reported regarding the dermatologic system. Musculoskeletal: Circulation, motion, and sensation intact. Range of motion: intact in all extremities. Vital Signs: 17:57 BP 133 / 77; Pulse 71; Resp 18; Temp 98; Pulse Ox 97% ; Pain 5/10; iw 17:57 Pain Scale: Adult iw ED Course: 17:21 Patient arrived in ED. cj3 17:21 Arm band placed on. iw 17:24 Daniel Ashley FNP-C is [facility]. dr5 17:24 Wade Robertson MD is Attending Physician. dr5 17:35 Mariah Wall, MIN is Primary Nurse. iw 17:52 Triage completed. iw 17:55 Patient has correct armband on for positive identification. iw 17:55 No provider procedures requiring assistance completed. Patient did not have IV access iw during this emergency room visit. 18:12 Assist provider with laceration repair on palmar aspect of distal phalanx of left index rg5 finger that was between 2.6 to 7.5 cm using sutures. Set up tray. Performed by Daniel BELTRAN Dressed with band aid, Patient tolerated well. Administered Medications: 18:11 Drug: Lidocaine Infiltration (1 %) 20 ml 20 ml Infiltration once; to bedside {Note: rg5 given by provider.} Volume: 20 ml; Route: Infiltration; 18:11 Drug: Boostrix Tdap IM 0.5 ml IM once; as a single dose Route: IM; Site: right deltoid; rg5 18:15 Follow up: Response: No adverse reaction rg5 Medication: 17:55 VIS not applicable for this client. iw Outcome: 18:14 Discharge ordered by MD. morales 18:28 Discharged to home ambulatory, rg5 18:28 Condition: stable 18:28 Discharge instructions given to patient, Instructed on discharge instructions, Demonstrated understanding of instructions, 18:29 Patient left the ED. rg5 Signatures: Mariah Wall RN RN iw Gallardo, Rommel, RN RN rg5 Daniel Ashley, HOG HANDLER-C [employer]OG HAND[employer]-[facility]5 Marleny Phillips 3
--- NOTE | 2024-11-28 18:15 | EDPHYS ---
Physician Documentation [facility] Name: Vinicio Lowe Age: 39 yrs Sex: Male : 1985 Arrival Date: 11/28/2024 Time: 17:10 Bed 9 Private MD: ED Physician Wade Robertson HPI: 11/28 18:15 This 39 yrs old Male presents to ER via Ambulatory with complaints of dr5 Laceration - FINGER. 18:15 Patient is a 39-year-old male with history of liver transplant and chronic kidney dr5 disease coming in with left anterior laceration from knife. Patient does not know last tetanus injection.. Historical: - Allergies: 17:55 No Known Allergies; iw - PMHx: 17:55 chronic kidney disease; iw - PSHx: 17:55 liver transplant; iw - Immunization history:: Adult Immunizations not up to date. - Infectious Disease History:: Denies. - Social history:: Smoking status: Patient denies any tobacco usage or history of. ROS: 18:15 Constitutional: as per hpi dr5 Exam: 18:15 Constitutional: This is a well developed, well nourished patient who is awake, alert, dr5 and in no acute distress. Head/Face: Normocephalic, atraumatic. Eyes: Pupils equal round and reactive to light, extra-ocular motions intact. Lids and lashes normal. Conjunctiva and sclera are non-icteric and not injected. Cornea within normal limits. Periorbital areas with no swelling, redness, or edema. Neck: Trachea midline, no thyromegaly or masses palpated, and no cervical lymphadenopathy. Supple, full range of motion without nuchal rigidity, or vertebral point tenderness. No Meningismus. Chest/axilla: Normal chest wall appearance and motion. Nontender with no deformity. No lesions are appreciated. Cardiovascular: Regular rate and rhythm with a normal S1 and S2. Normal PMI, no JVD. No pulse deficits. Respiratory: Lungs have equal breath sounds bilaterally, clear to auscultation. No rales, rhonchi or wheezes noted. No increased work of breathing, no retractions or nasal flaring. Back: No spinal tenderness. No costovertebral tenderness. Full range of motion. MS/ Extremity: Pulses equal, no cyanosis. Neurovascular intact. Full, normal range of motion. Neuro: Awake and alert, GCS 15, oriented to person, place, time, and situation. Cranial nerves II-XII grossly intact. Motor strength 5/5 in all extremities. Sensory grossly intact. Cerebellar exam normal. Normal gait. 18:15 Skin: injury, laceration(s), the wound is approximately 3 cm(s), with a depth of .5 cm(s), of the palmar aspect of distal phalanx of left index finger, that can be described as 18:15 Musculoskeletal/extremity: Tendon exam: specific tendon testing normal through active dr5 and passive range of motion Vital Signs: 17:57 BP 133 / 77; Pulse 71; Resp 18; Temp 98; Pulse Ox 97% ; Pain 5/10; iw 17:57 Pain Scale: Adult iw Laceration: 18:15 Wound Repair of 3cm ( 1.2in ) subcutaneous laceration to palmar aspect of distal dr5 phalanx of left index finger. Linear shaped.. Distal neuro/vascular/tendon intact. Anesthesia: Local anesthetic administered with 2 mls of 1% lidocaine. Wound prep: Moderate cleansing by me. Skin closed with 3 4-0 Prolene using simple sutures and sterile technique. Dressed with non-adherent dressing. Patient tolerated well. MDM: 17:24 Medical Screening Exam initiated dr5 18:17 Differential diagnosis: abrasion, contusion, fracture, laceration, sprain, strain. Data dr5 reviewed: vital signs, nurses notes. Consideration of Admission/Observation Escalation of care including admission/observation considered. Escalation considered patient found to have tendon involvement. I considered the following discharge prescriptions or medication management in the emergency department I discussed and recommended Over The Counter medications, Medications were administered in the Emergency Department. See MAR. Test considered but Not performed: X-ray: X-ray considered but patient does not have trauma to bones and no tendon was involved. Care significantly affected by the following chronic conditions: Chronic kidney disease, liver transplant. Care significantly affected by the following Social Determinants of Health: Poor access to healthcare and/or lack of insurance, Poor access to transportation, Problems related to employment. Counseling: I had a detailed discussion with the patient and/or guardian regarding the historical points, exam findings, and any diagnostic results supporting the discharge/admit diagnosis, the presence of at least one elevated blood pressure reading (>120/80) during this emergency department visit, the need for outpatient follow up, for definitive care, a family practitioner, to return to the emergency department if symptoms worsen or persist or if there are any questions or concerns that arise at home. Medication response: Lidocaine. Response to treatment: the patient's symptoms have resolved after treatment, the patient is now symptom free. Special discussion: I discussed with the patient/guardian in detail that at this point there is no indication for admission to the hospital. It is understood, however, that if the symptoms persist or worsen the patient needs to return immediately for re-evaluation. Based on the history and exam findings, there is no indication for further emergent testing or inpatient evaluation. I discussed with the patient/guardian the need to see the primary care provider for further evaluation of the symptoms. ED course: Will have patient return in 7 to days for suture removal. Finger splint placed to facilitate healing of laceration. Boostrix was updated in ER today. Well-approximated wound. All question answered. Strict ER precautions given.. 11/28 17:33 Order name: Dressing - Wound; Complete Time: 17:48 dr5 11/28 17:33 Order name: Gloves, Sterile; Complete Time: 17:48 dr5 11/28 17:33 Order name: Setup Suture Tray; Complete Time: 17:48 dr5 Administered Medications: 18:11 Drug: Lidocaine Infiltration (1 %) 20 ml 20 ml Infiltration once; to bedside {Note: rg5 given by provider.} Volume: 20 ml; Route: Infiltration; 18:11 Drug: Boostrix Tdap IM 0.5 ml IM once; as a single dose Route: IM; Site: right deltoid; rg5 18:15 Follow up: Response: No adverse reaction rg5 Disposition Summary: 11/28/24 18:14 Discharge Ordered Notes: Location: Home dr5 Condition: Stable dr5 Diagnosis - Laceration without foreign body of left index finger with damage to nail, initial dr5 encounter Followup: dr5 - With: Emergency Department - When: As needed - Reason: Worsening of condition Followup: dr5 - With: Private Physician - When: 1 - 2 days - Reason: Recheck today's complaints, Continuance of care, Re-evaluation by your physician Discharge Instructions: - Discharge Summary Sheet dr5 - Cast or Splint Care, Adult dr5 - Laceration Care, Adult dr5 Forms: - Work release form dr5 - Medication Reconciliation Form dr5 - Patient Portal Instructions dr5 - Leadership Thank You Letter dr5 Signatures: Mariah Wall, RN RN iw Phil Castellano RN RN rg5 Daniel Ashley, GAYE-C PRINCIPAL GIFTS OFFICER-Cdr5
[2024-11-28 23:13] VITALS: BP 133/77; TEMP 98; O2SAT 97
== END 2024-11-28 18:29 | disposition home or self-care (01) ==
LOC: ER 17:10
DX: S61.311A Laceration without foreign body of left index finger with damage to nail, initial encounter (principal); W26.0XXA Contact with knife, initial encounter; Z23 Encounter for immunization
CPT/HCPCS: 90715; 96372; 99284; 12002; J2003